=== PATIENT | male | born 1945 | race Caucasian/White ===

== ENCOUNTER 2016-08-01 11:28 | Inpatient (IN) | payer OTHER, MEDICARE ==
[~2016-08-01 11:28] MED LIST: ALBUTEROL I0.5 ML/EA AERO NEB; ALBUTEROL INH 0.3 ML AERO NEB; ALBUTEROL0.63 MG/1 IH; ALBUTEROL17 GM; ALBUTEROL17 GM INH; ALBUTEROL2.5 MG/3 M INH; ARTIFICIAL TEAR15 M3 OP; ARTIFICIAL TEAR15 M8 OP; ASMANEX0.135 GM; ASPIR-TRIN325 M2 PO; ASPIRIN325 M2 PO; ASPIRIN325 MG PO; ATORVASTATIN CA40 MG PO; AUGMENTIN 875-1 EAC2 PO; AZITHROMYCIN250 MG PO; B-12500 MC1 PO; B12 PO; BAYER ASPIRIN325 MG; BISACODYL5 M1 PO; BROVANA15 MCG/2 M IH; BROVANA15 MCG/22 IH; CARDURA4 MG PO; CHLORHEXIDINE473 M1 PO; CLOBETASOL EMU100 GM TOP; CLOBETASOL PROP50 M1 TOP; CLONAZEPAM1 M1 PO; CLONAZEPAM1 M2 PO; CLONAZEPAM1 MG PO; COLACE100 M1 PO; CRESTOR40 MG PO; CRESTOR40 MG/TAB PO; CULTURELLE1 EAC1 PO; D3-20002000 UNIT PO; DEXAMETHASONE2 M1 PO; DIFLUCAN100 M1 PO; DOXAZOSIN MESYLA2 MG; DOXAZOSIN MESYLA2 MG PO; DOXAZOSIN MESYLA8 M1 PO; DOXYCYCLINE; DOXYCYCLINE HY100 MG PO; DOXYCYCLINE MO100 M1 PO; DULERA 200 MCG/13 G1 INH; DUONEB 2.5-0.5 M3 ML IH; EFFEXOR PO; EFFEXOR XR150 MG; EFFEXOR75 M1 PO; FISH OIL 11000 MG/CA PO; FLOMAX0.4 M1 PO; FLUOCINOLONE AC20 ML TP; FORADIL12 MCG; FORADIL12 MCG IH; FUROSEMIDE20 M1 PO; FUROSEMIDE20 MG; FUROSEMIDE20 MG PO; GABAPENTIN300 M1 PO; HAIR, SKIN & N1 EACH PO; HUMALOG100 U/ML SQ; HYDROCORTISON28.4 G2 TP; IBUPROFEN800 M1 PO; IBUPROFEN800 MG; IBUPROFEN800 MG PO; IMDUR30 MG; IMDUR30 MG PO; IPRAT-ALBUT 0.5-3 ML IH; IPRATROPIUM BR21 MCG; IPRATROPIUM BROMIDE INH; KETOCONAZOLE TOP; KETOCONAZOLE120 M2 TOP; KETOCONAZOLE120 M2 TP; KETOCONAZOLE120 ML TP; KLONOPIN1 M1 PO; KLONOPIN1 MG; LAMICTAL150 MG; LAMICTAL150 MG PO; LAMOTRIGINE150 M1 PO; LAMOTRIGINE150 MG PO; LAXATIVE5 M4 PO; LEVAQUIN750 M1 PO; LISINOPRIL10 M1 PO; LISINOPRIL10 MG PO; LISINOPRIL5 MG PO; LOPRESSOR50 M1 PO; MEDROL4 M1; METAMUCIL660 GM PO; METOPROLOL SUCC25 MG PO; METOPROLOL TART25 M1 PO; METOPROLOL TART50 M1 PO; METOPROLOL TART50 M2 PO; METOPROLOL TART50 MG PO; METROGEL55 GM TP; MIRALAX17 G2 PO; MUCINEX600 M1 PO; MUCINEX600 MG PO; MULTIVITAMIN1 TAB; MULTIVITAMIN1 TAB PO; MULTIVITAMINS1 EAC6 PO; NITROGLYCERIN0.4 M2 SL; NITROGLYCERIN0.4 MG SL; NITROSTAT0.4 MG SL; NORCO 5-325 TA1 EACH PO; NORVASC5 M1 PO; OMEPRAZOLE20 M2 PO; OMEPRAZOLE20 M3 PO; OXYGEN NS; PERIDEX480 ML MM; PLAVIX75 MG; PLAVIX75 MG PO; PREDNISONE10 M1 PO; PREDNISONE10 MG PO; PREDNISONE20 M1 PO; PREDNISONE20 MG PO; PREDNISONE5 M1 PO; PRILOSEC20 MG; PRINIVIL10 M1 PO; PROAIR HFA8.5 GM IH; PROAIR RESPICL90 MCG INH; PROTONIX40 M2 PO; PROTONIX40 MG PO; PULMICORT0.5 MG/2 M IH; PULMICORT0.5 MG/22 IH; SENOKOT8.6 MG PO; SODIUM CHLORIDE10 M2 IV; SOLU-MEDRO125 MG/23 IV; SPIRIVA18 MC1 IH; SPIRIVA18 MCG IH; SYMBICORT 160-1 PUFF INH; SYMBICORT 16010.2 GM IH; TAMSULOSIN HCL0.4 M1 PO; THEOCHRON100 MG PO; TRAZODONE HCL100 M1 PO; TRIAMCINOLONE A15 GM TP; TYLENOL325 M2 PO; VENLAFAXINE HC150 M2 PO; VENLAFAXINE HC150 MG PO; VENTOLIN HFA18 GM IH; VITAMIN C500 M2 PO; VITAMIN C500 M3 PO; ZEBETA5 MG PO; ZITHROMAX250MG Z-PAK PO; ZOCOR80 MG; [UNRECOGNIZED DRUG - OTHER] PO
[2016-08-01 12:24] LABS: BASO % 0.2 % (0-2); EOS % 1.9 % (0-7); EOSINOPHIL ABSOLUTE COUNT 0.2 tho/cmm (0.0-0.7); HCT-HEMATOCRIT 38.4 % (36.0-53.5); HGB-HEMOGLOBIN 12.2 gm/dl (13.5-17.0); IMMATURE GRANULOCYTES ABSOLUTE 0.04 tho/cmm (0-0.03); IMMATURE GRANULOCYTES PERCENT 0.3 % (0-0.3); LYMPH ABSOLUTE COUNT 0.4 tho/cmm (0.8-4.5); MCH (MEAN CORPUSCULAR HGB) 31.1 pg (28.0-32.0); MCHC MEAN CORPUSCULAR HGB CONC 31.8 % (32.0-36.0); MEAN PLATELET VOLUME 9.8 cmc (9.4-12.4); MONO % 0.8 % (0-12); MONOCYTE ABSOLUTE COUNT 0.1 tho/cmm (0.0-1.2); NEUTROPHIL ABSOLUTE COUNT 11.1 tho/cmm (1.6-8.0); NEUTROPHIL-AUTOMATED 11.1 tho/cmm (1.6-8.0); NEUTROPHILS % 93.8 % (40-80); PLATELET COUNT 134 tho/cmm (150-450); RED BLOOD COUNT 3.92 mil/cmm (4.40-5.70); RED CELL DISTRIBUTION WIDTH 13.2 % (12.4-16.4); WHITE BLOOD COUNT 11.8 tho/cmm (4.0-10.0)
[2016-08-01 12:42] LABS: ANION GAP 10 mmol/L (0-20); BLOOD UREA NITROGEN 14 mg/dl (6-24); CALCIUM 9.6 mg/dl (8.5-10.5); CARBON DIOXIDE-VENOUS 36 mmol/L (22-32); CHLORIDE 97 mmol/l (96-110); CREATININE 1.07 mg/dl (0.60-1.30); GLUCOSE 126 mg/dL (70-110); POTASSIUM 4.7 mmol/L (3.7-5.1); SODIUM 138 mmol/L (135-145); eGFR VALUE FOR BLACK 81 mL/Min
[2016-08-01] MEDS ORDERED: SYMBICORT 160-1 PUFF INH (12:46)
[2016-08-01] MEDS ORDERED: DOXYCYCLINE MO100 M2 PO (14:38)
[2016-08-01] MEDS ORDERED: CLOBETASOL PROP50 M1 TOP (14:38)
[2016-08-01] MEDS ORDERED: NUTRITIONAL SU237 ML PO (14:39)
[2016-08-01] MEDS ORDERED: PREDNISONE5 M1 PO (14:40)
[2016-08-01] MEDS ORDERED: DENTA 5000 PLUS51 GM PO (14:41)
[2016-08-01] MEDS ORDERED: MILK OF MAGNESIA PO (15:44)
[2016-08-01 16:16] LABS: ABG CO2 ARTERIAL 36 mmol/L (21-27); ARTERIAL BLD GAS O2 SATURATION 97 % (95-98); ARTERIAL BLOOD GAS PCO2 65 mmHg (32-45); ARTERIAL PO2 88 mmHg (70-100); BICARBONATE 34 mmol/L (21-28); BLOOD GAS BASE EXCESS 7 mM/L (-/+3); PH 7.34 Units (7.35-7.45)
[2016-08-02 04:55] LABS: ABG CO2 ARTERIAL 37 mmol/L (21-27); ARTERIAL BLD GAS O2 SATURATION 98 % (95-98); ARTERIAL BLOOD GAS PCO2 60 mmHg (32-45); BICARBONATE 35 mmol/L (21-28); BLOOD GAS BASE EXCESS 9 mM/L (-/+3); PH 7.39 Units (7.35-7.45)
[2016-08-02 04:58] LABS: BASO % 0.1 % (0-2); EOS % 0.1 % (0-7); HCT-HEMATOCRIT 35.7 % (36.0-53.5); HGB-HEMOGLOBIN 11.4 gm/dl (13.5-17.0); IMMATURE GRANULOCYTES ABSOLUTE 0.02 tho/cmm (0-0.03); IMMATURE GRANULOCYTES PERCENT 0.3 % (0-0.3); LYMPH % 7.4 % (20-45); LYMPH ABSOLUTE COUNT 0.5 tho/cmm (0.8-4.5); MCH (MEAN CORPUSCULAR HGB) 30.5 pg (28.0-32.0); MCHC MEAN CORPUSCULAR HGB CONC 31.9 % (32.0-36.0); MCV (MEAN CELL VOLUME) 95.5 fl (82.0-96.0); MEAN PLATELET VOLUME 9.3 cmc (9.4-12.4); MONO % 2.9 % (0-12); MONOCYTE ABSOLUTE COUNT 0.2 tho/cmm (0.0-1.2); NEUTROPHIL ABSOLUTE COUNT 6.3 tho/cmm (1.6-8.0); NEUTROPHIL-AUTOMATED 6.3 tho/cmm (1.6-8.0); NEUTROPHILS % 89.2 % (40-80); PLATELET COUNT 198 tho/cmm (150-450); RED BLOOD COUNT 3.74 mil/cmm (4.40-5.70); RED CELL DISTRIBUTION WIDTH 12.9 % (12.4-16.4)
[2016-08-02 05:04] LABS: ARTERIAL PO2 110 mmHg (70-100)
[2016-08-02 05:14] LABS: ALB/GLOB RATIO 0.8 (0.8-2.0); ALBUMIN 3.2 g/dl (3.5-5.0); ALKALINE PHOSPHATASE 88 U/L (33-138); ALT/SGPT 15 U/L (12-78); ANION GAP 10 mmol/L (0-20); AST/SGOT 17 U/L (10-40); BILIRUBIN,TOTAL 0.4 mg/dl (0.0-1.5); BLOOD UREA NITROGEN 20 mg/dl (6-24); CALCIUM 9.4 mg/dl (8.5-10.5); CARBON DIOXIDE-VENOUS 36 mmol/L (22-32); CHLORIDE 95 mmol/l (96-110); CREATININE 1.08 mg/dl (0.60-1.30); GLUCOSE 133 mg/dL (70-110); MAGNESIUM 2.3 mg/dl (1.8-2.6); PHOSPHOROUS 2.7 mg/dl (2.5-4.9); POTASSIUM 4.4 mmol/L (3.7-5.1); SODIUM 137 mmol/L (135-145); eGFR VALUE FOR BLACK 80 mL/Min
[2016-08-02 05:16] LABS: ESR-ERYTHROCYTE SED RATE 42 mm/hr (0-20)
[2016-08-02] MEDS ORDERED: ALBUTEROL2.5 MG/3 M INH (11:47)
[2016-08-02] MEDS ORDERED: IPRAT-ALBUT 0.5-3 ML INH (11:47)
[2016-08-03 04:58] LABS: ABG CO2 ARTERIAL 34 mmol/L (21-27); ARTERIAL BLD GAS O2 SATURATION 99 % (95-98); ARTERIAL BLOOD GAS PCO2 56 mmHg (32-45); ARTERIAL PO2 128 mmHg (70-100); BICARBONATE 32 mmol/L (21-28); BLOOD GAS BASE EXCESS 6 mM/L (-/+3); PH 7.38 Units (7.35-7.45)
[2016-08-04 03:59] LABS: HCT-HEMATOCRIT 34.5 % (36.0-53.5); HGB-HEMOGLOBIN 11.1 gm/dl (13.5-17.0); IMMATURE GRANULOCYTES ABSOLUTE 0.05 tho/cmm (0-0.03); IMMATURE GRANULOCYTES PERCENT 0.4 % (0-0.3); LYMPH ABSOLUTE COUNT 0.5 tho/cmm (0.8-4.5); MCH (MEAN CORPUSCULAR HGB) 30.3 pg (28.0-32.0); MCHC MEAN CORPUSCULAR HGB CONC 32.2 % (32.0-36.0); MCV (MEAN CELL VOLUME) 94.3 fl (82.0-96.0); MEAN PLATELET VOLUME 9.7 cmc (9.4-12.4); MONO % 3.3 % (0-12); MONOCYTE ABSOLUTE COUNT 0.4 tho/cmm (0.0-1.2); NEUTROPHIL ABSOLUTE COUNT 12.1 tho/cmm (1.6-8.0); NEUTROPHIL-AUTOMATED 12.1 tho/cmm (1.6-8.0); NEUTROPHILS % 92.3 % (40-80); PLATELET COUNT 186 tho/cmm (150-450); RED BLOOD COUNT 3.66 mil/cmm (4.40-5.70); RED CELL DISTRIBUTION WIDTH 13.4 % (12.4-16.4)
[2016-08-04 04:06] LABS: WHITE BLOOD COUNT 13.1 tho/cmm (4.0-10.0)
[2016-08-04 04:09] LABS: ANION GAP 9 mmol/L (0-20); BLOOD UREA NITROGEN 28 mg/dl (6-24); CALCIUM 8.9 mg/dl (8.5-10.5); CARBON DIOXIDE-VENOUS 34 mmol/L (22-32); CHLORIDE 101 mmol/l (96-110); CREATININE 1.03 mg/dl (0.60-1.30); GLUCOSE 119 mg/dL (70-110); POTASSIUM 4.6 mmol/L (3.7-5.1); SODIUM 139 mmol/L (135-145); eGFR VALUE FOR BLACK 84 mL/Min
[2016-08-05 05:04] LABS: ANION GAP 8 mmol/L (0-20); BLOOD UREA NITROGEN 27 mg/dl (6-24); CALCIUM 8.7 mg/dl (8.5-10.5); CARBON DIOXIDE-VENOUS 33 mmol/L (22-32); CHLORIDE 104 mmol/l (96-110); CHOLESTEROL 198 mg/dl (120-200); CREATININE 0.88 mg/dl (0.60-1.30); GLUCOSE 81 mg/dL (70-110); HDL CHOLESTEROL 68 mg/dl (40-60); LDL CHOLESTEROL 96 mg/dl (0-99); SODIUM 141 mmol/L (135-145); VLDL 34 mg/dl (0-30); eGFR VALUE FOR BLACK >90 mL/Min
[2016-08-05 05:23] LABS: TRIGLYCERIDES 170 mg/dl (<149)
[2016-08-05] MEDS ORDERED: CLARITIN10 M6 PO (12:18)
[2016-08-05] MEDS ORDERED: BISOPROLOL FUMAR5 M1 PO (12:42)
[2016-08-05] MEDS ORDERED: ZOCOR40 M1 PO (12:43)
[2016-08-05] MEDS ORDERED: ASPIRIN81 M1 PO (12:45)
[2016-09-27] MEDS ORDERED: PREDNISONE10 M1 PO (16:54)
[2016-09-27] MEDS ORDERED: MIRALAX17 G2 PO (16:55)
[2016-09-27] MEDS ORDERED: MEGESTROL ACETA40 M1 PO (16:57)
[2016-09-27] MEDS ORDERED: IPRAT-ALBUT 0.5-3 ML NEB (17:06)
[2016-09-27] MEDS ORDERED: VENTOLIN HFA18 G2 PO (17:26)
[2016-09-27] MEDS ORDERED: FLONASE ALLERG9.9 ML (17:28)
[2016-09-27] MEDS ORDERED: VIBRAMYCIN100 M1 PO (17:29)
[2016-09-27] MEDS ORDERED: ZITHROMAX250 M1 PO (17:31)
[2016-09-27] MEDS ORDERED: PERIDEX118 ML SSP (17:40)
[2016-10-06] MEDS ORDERED: ALBUTEROL2.5 MG/3 M NEB (13:59)
[2016-10-06] MEDS ORDERED: SF 5000 PLUS51 GM DT (14:07)
[2016-10-06] MEDS ORDERED: FISH OIL 11000 MG/CA PO (14:08)
[2016-10-06] MEDS ORDERED: ZITHROMAX250 M1 PO (14:40)
[2016-10-06] MEDS ORDERED: POLYETHYLENE GL17 G1 PO (14:43)
[2016-10-27] MEDS ORDERED: CLARITIN10 M6 PO (10:44)
[2016-10-27] MEDS ORDERED: SF 5000 PLUS51 GM DT (10:47)
[2016-10-30] MEDS ORDERED: LEVAQUIN750 M1 PO (13:56)
[2016-10-30] MEDS ORDERED: MUCINEX600 M1 PO (13:59)
[2016-12-09] MEDS ORDERED: IPRATROPIU0.2 MG/1 M NEB (12:03)
[2016-12-09] MEDS ORDERED: OPDIVO100 MG/10 IV (13:29)
[2016-12-25] MEDS ORDERED: AUGMENTIN PO (13:36)
[2016-12-25] MEDS ORDERED: PREDNISONE10 M1 (13:38)
[2016-12-25] MEDS ORDERED: NORCO 5-325 TA1 EACH PO (13:38)
[2016-12-25] MEDS ORDERED: STOP HOME MEDICATION (13:40)
== END 2016-08-05 13:28 | DRG 190 ==
LOC: EDMED 11:28 → EMR2 17:13 → CCU 18:08 → PCUB 08-03 07:48
PROVIDERS: Emergency Medicine; Internal Medicine Cardiovascular Disease; Internal Medicine Critical Care Medicine; Nurse Practitioner; ADMIT Internal Medicine
PROC: 5A09357 Assistance with Respiratory Ventilation, Less than 24 Consecutive Hours, Continuous Positive Airway Pressure (ICD-10-PCS; principal; 2016-08-01)
DX: J44.1 Chronic obstructive pulmonary disease with (acute) exacerbation (principal); J96.22 Acute and chronic respiratory failure with hypercapnia; J96.21 Acute and chronic respiratory failure with hypoxia; I42.9 Cardiomyopathy, unspecified; I10 Essential (primary) hypertension; C34.11 Malignant neoplasm of upper lobe, right bronchus or lung; D64.9 Anemia, unspecified; I25.10 Atherosclerotic heart disease of native coronary artery without angina pectoris; F43.10 Post-traumatic stress disorder, unspecified; R07.9 Chest pain, unspecified; Z87.891 Personal history of nicotine dependence; N40.0 Benign prostatic hyperplasia without lower urinary tract symptoms; Z91.81 History of falling; Z88.1 Allergy status to other antibiotic agents; Z91.018 Allergy to other foods; T45.1X5A Adverse effect of antineoplastic and immunosuppressive drugs, initial encounter; Z99.81 Dependence on supplemental oxygen; G47.33 Obstructive sleep apnea (adult) (pediatric); Z95.1 Presence of aortocoronary bypass graft; E78.5 Hyperlipidemia, unspecified; R00.0 Tachycardia, unspecified; Z95.5 Presence of coronary angioplasty implant and graft; Z86.718 Personal history of other venous thrombosis and embolism
CPT/HCPCS: A9500; J1650; J1956; J2785; J2930; Q9967